=== PATIENT | male | born 1990 | race Caucasian/White ===

== ENCOUNTER 2018-12-20 17:42 | Emergency (ER) | payer OTHER ==
[~2018-12-20] VITALS: Ht 188 cm; Wt 72.0 kg
--- NOTE | 2018-12-20 17:54 | NUR ---
PT BIB AMBULANCE WITH CORI FOR COUGH AND SORE THROAT X3 DAYS. CONNECTED TO MONITOR. ELEVATED TEMP, TACHY, ALL OTHER VSS. NO NEEDS AT THIS TIME. AWAITING MD ASSESSMENT.
--- NOTE | 2018-12-20 18:24 | NUR ---
PT TO IMAGING WITH CORI.
[2018-12-20] MEDS ORDERED: ACETAMINOPHEN 325 MG TABLET ONE (18:40)
[2018-12-20] MEDS ORDERED: ACETAMINOPHEN 325 MG TABLET PO ONE (19:00)
--- NOTE | 2018-12-20 19:06 | NUR ---
First pt contact, sleeping quietly, temp 103.1, hr 108-120, Spo2 92-94%. Awaiting results, encourage po fluids as lips dry and cracked, will med with motrin for fever control
[2018-12-20] MEDS ORDERED: IBUPROFEN 600 MG TABLET ONE (19:10)
[2018-12-20] MEDS ORDERED: IBUPROFEN 600 MG TABLET PO ONE (19:30)
[2018-12-20 19:43] VITALS: BP 124/80
--- NOTE | 2018-12-20 19:44 | NUR ---
Pt temp down at this time, HR down, drank approx 800ml water, lips pink and moist. Instructions given to pt and officer.
== END 2018-12-20 20:10 | disposition home or self-care (01) ==
LOC: ED 17:56
DX: J02.8 Acute pharyngitis due to other specified organisms (principal); B97.89 Other viral agents as the cause of diseases classified elsewhere
CPT/HCPCS: 70360; 71046; 87081; 87880; 99284